=== PATIENT | female | born 1980 | race Caucasian/White ===

== ENCOUNTER 2017-10-10 21:08 | Emergency (ER) | payer BC ==
[~2017-10-10] VITALS: Ht 167.6 cm; Wt 140.6 kg
[2017-10-10] MEDS ORDERED: MORPHINE SULFATE INJ 4 MG/ML INJ IM PRN (21:30)
[2017-10-10] MEDS ORDERED: ONDANSETRON HCL 4 MG ORAL DISINTEGRATING TAB PO ONE (21:30)
[2017-10-10] MEDS ORDERED: KETOROLAC TROMETHAMINE 60 MG/2 ML VIAL IM ONE (21:30)
[2017-10-10] MEDS ORDERED: DEXAMETHASONE SOD PHOS 10 MG/1 ML VIAL INJ ONE (21:30)
[2017-10-10] MEDS ORDERED: MORPHINE SULFATE 2 MG/ML SYR ONE (21:39)
[2017-10-10] MEDS ORDERED: PROMETHAZINE HCL (IM) 25 MG/ML VIAL IM ONE (22:15)
[2017-10-10 22:54] VITALS: BP 139/90
== END 2017-10-10 22:45 | disposition home or self-care (01) ==
LOC: ER 21:08
DX: M54.42 Lumbago with sciatica, left side (principal)
CPT/HCPCS: 99283; J1100; J1885; J2270; J2550

== ENCOUNTER 2017-10-12 10:32 | Emergency (ER) | payer BC ==
[~2017-10-12] VITALS: Ht 167.6 cm; Wt 140.6 kg
[2017-10-12] MEDS ORDERED: ONDANSETRON HCL INJ 2 MG/ML VIAL IV STA ×2 (10:39→15:20)
[2017-10-12] MEDS ORDERED: KETOROLAC TROMETHAMINE 30 MG/ML VIAL IV STA (10:39)
[2017-10-12] MEDS ORDERED: HYDROMORPHONE 1MG/1ML INJ IV STA (10:39)
[2017-10-12 12:00] LABS: BASOPHILS # (AUTO) 0.1 (0.0-0.1); BASOPHILS % 0.4 % (0.0-1.0); EOSINOPHILS % 0.1 % (0.0-6.0); HEMATOCRIT 46.2 % (34.2-44.1); HEMOGLOBIN 15.1 g/dL (12.0-16.0); LYMPHOCYTES # (AUTO) 2.3 (1.0-3.2); LYMPHOCYTES % 18.6 % (18.0-39.1); MEAN CORPUSCULAR HEMOGLOBIN 29.8 pg (28-32); MEAN CORPUSCULAR HGB CONC 32.7 g/dL (31-35); MEAN CORPUSCULAR VOLUME 91.3 fL (81-99); MONOCYTES # (AUTO) 0.5 (0.2-0.8); MONOCYTES % 4.2 % (4.4-11.3); NEUTROPHILS # (AUTO) 9.4 (2.1-6.9); NEUTROPHILS % 76.5 % (38.7-80.0); PLATELET COUNT 353 x10e3/uL (140-360); RED BLOOD COUNT 5.06 x10e6/uL (3.6-5.1); RED CELL DISTRIBUTION WIDTH 13.8 % (11.7-14.4)
[2017-10-12 12:03] LABS: BILIRUBIN,URINE NEGATIVE (NEGATIVE); CLARITY,URINE CLEAR (CLEAR); COLOR,URINE YELLOW (YELLOW); KETONES,URINE NEGATIVE (NEGATIVE); LEUKOCYTE ESTERASE ,URINE NEGATIVE (NEGATIVE); NITRITE,URINE NEGATIVE (NEGATIVE); PROTEIN,URINE DIPSTICK NEGATIVE (NEGATIVE); URINE UROBILINOGEN 0.2 mg/dL (0.2 - 1)
[2017-10-12 12:14] LABS: BACTERIA,URINE FEW /HPF; EPITHELIAL CELLS,URINE FEW /LPF; RBC,URINE 0-5 /HPF (0-5); WBC,URINE (MAN) 0-5 /HPF (0-5)
[2017-10-12 12:20] LABS: ALANINE AMINOTRANSFERASE 20 IU/L (0-55); ALBUMIN 3.7 g/dL (3.5-5.0); ALBUMIN/GLOBULIN RATIO 0.8 (0.8-2.0); ALKALINE PHOSPHATASE 83 IU/L (40-150); ANION GAP 16.6 mmol/L (8-16); BLOOD UREA NITROGEN 12 mg/dL (7-26); BUN/CREATININE RATIO 16 (6-25); CARBON DIOXIDE 25 mmol/L (22-29); CHLORIDE 102 mmol/L (98-107); CREATININE, SERUM 0.75 mg/dL (0.57-1.11); EST GLOMERULAR FILTRATION RATE > 60 ML/MIN (60-); GLUCOSE 104 mg/dL (74-118); POTASSIUM 3.6 mmol/L (3.5-5.1); SODIUM 140 mmol/L (136-145)
--- NOTE | 2017-10-12 13:24 | Diagnostic Imaging Report ---
ADDENDUM #1 Dose modulation, iterative reconstruction, and/or weight based adjustment of the mA/kV was utilized to reduce the radiation dose to as low as reasonably achievable. Signed by: Dr. Sita Negrete M.D. on 10/16/2017 3:28 PM ORIGINAL REPORT EXAMINATION: CT of the lumbar spine HISTORY:Back pain radiating to the left lower extremity with numbness COMPARISON:Not available TECHNIQUE: Multidetector helical axial images were obtained without contrast from L1 to S1. The images were reconstructed using bone and soft tissue algorithms and were viewed in axial, sagittal, and coronal planes. Image quality: Poor spatial resolution due to x-ray beam attenuation, related to patient's body habitus. FINDINGS: Alignment:Normal alignment and lordosis. Vertebral bodies:Normal height and density. Chronic endplate degenerative changes at L3-L4 and L5-S1. Paraspinal muscles:Normal. Intervertebral disks: Degenerated disc with decreased disc height, diffuse disc bulges and marginal endplate osteophytes from L3 to S1. L1-L2: Normal. L2-L3: Normal. L3-L4: Decreased disc height, marginal endplate osteophytes and facet arthrosis worse to the left. Mild canal and moderate left foraminal stenoses. L4-L5: Asymmetric to the right disc osteophyte and mild bilateral facet arthrosis. Moderate right and mild left foraminal stenoses. Mild canal stenosis. L5-S1: Disc osteophyte asymmetric to the left and bilateral facet arthrosis. Mild canal and left foraminal narrowing. IMPRESSION: 1. No acute lumbar spine fractures or dislocations. 2. Moderate degenerative foraminal stenosis on the left at L3-L4 and on the right at L4-L5. 3. Spondylosis from L3 to S1 with mild canal narrowing. Signed by: Dr. Sita Negrete M.D. on 10/12/2017 1:21 PM
[2017-10-12] MEDS ORDERED: SODIUM CHLORIDE FLUSH 10 ML SYR INJ PRN (14:30)
[2017-10-12] MEDS ORDERED: ONDANSETRON HCL INJ 2 MG/ML VIAL IV PRN (14:30)
[2017-10-12] MEDS ORDERED: MORPHINE SULFATE 2 MG/ML SYR IV PRN (14:30)
[2017-10-12] MEDS ORDERED: MORPHINE SULFATE INJ 4 MG/ML INJ IV STA (15:20)
[2017-10-12] MEDS ORDERED: DEXAMETHASONE SOD PHOS 10 MG/1 ML VIAL IV ONE (16:15)
[2017-10-12 18:05] VITALS: BP 121/79
== END 2017-10-12 19:25 | disposition other institution (70) ==
LOC: ER 10:32 → UNDOADMOB 14:56 → ERHOLD 14:56 → ER 19:25
DX: M54.42 Lumbago with sciatica, left side (principal); R32 Unspecified urinary incontinence
CPT/HCPCS: 36415; 72131; 80053; 81001; 84702; 85025; 87086; 99284; J1100; J1170; J1885; J2270; J2405